=== PATIENT | female | born 1960 | race Caucasian/White ===

== ENCOUNTER 2021-11-05 14:17 | Emergency (ER) | payer OTHER ==
[~2021-11-05] VITALS: Ht 157.5 cm; Wt 51.3 kg
[2021-11-05] MEDS ORDERED: CARAFATE1 GM PO (21:49)
[2021-11-05] MEDS ORDERED: LEVSIN/SL0.125 MG SL (21:49)
[2021-11-05] MEDS ORDERED: PEPCID20 MG PO (21:49)
== END 2021-11-05 21:58 | disposition home or self-care (01) ==
LOC: ER 14:17
DX: K29.70 Gastritis, unspecified, without bleeding (principal); R10.84 Generalized abdominal pain